=== PATIENT | male | born 1940 | race Caucasian/White ===

== ENCOUNTER 2025-05-21 14:46 | Outpatient (OUT) | payer MEDICARE, OTHER, SELFPAY ==
--- OUTSIDE RECORDS SUMMARY | 2024-11-19 07:00 | XMS_ITS ---
Author Organization [facility] Address [address] [place] [address] [place] [address] Care Team Providers Care Overlock Sleeve Setter Name Role Phone Robin Gross DO Primary Care Provider Marck Daniels [facility] [phone] Encounters Encounter Location Date Provider Diagnosis [address] [id number] 11/19/2024 Marck Chen Plan Of Treatment No Information Progress Notes * Alejo ARMANDODOB: [birth year] (84 yo M)Acc No.[id number]:11/19/2024 Patient: Phill TREVIÑOarlin Provider: Hector Chen DPM :1940 A ge:84 Y S ex:Male Date:11/19/2024 Address:[address] [place], [place] [id number] Pcp:Robin Gross DO Subjective: * Chief Complaints: * * Medical History: Objective: * Vitals: Assessment: Plan: * Treatment: * Images: * Electronic signature of [place] in YEISKA Chen on 05/21/2025 at 02:49 PM EDT Sign off status: Pending * Provider: Hector Chen DPM Date: 11/19/2024 Generated for Oneal spears/Salvador/Saravanan on: 05/21/2025 02:49 PM EDT
--- OUTSIDE RECORDS SUMMARY | 2025-02-18 06:15 | XMS_ITS ---
Author Organization [facility] Address [address] [place] [address] [place] [address] Care Team Providers Care Director Nursing Service Name Role Phone Robin Gross DO Primary Care Provider Marck Daniels [facility] [phone] Encounters Encounter Location Date Provider Diagnosis [address] [id number] 02/18/2025 Marck Chen Plan Of Treatment No Information Progress Notes * Alejo ARMANDODOB: [birth year] (84 yo M)Acc No.[id number]:02/18/2025 Patient: Phill TREVIÑOarlin Provider: Hector Chen DPM :1940 A ge:84 Y S ex:Male Date:02/18/2025 Address:[address] [place], [place] [id number] Pcp:Robin Gross DO Subjective: * Chief Complaints: * * Medical History: Objective: * Vitals: Assessment: Plan: * Treatment: * Images: * Electronic signature of [place] in YESIKA Chen on 05/21/2025 at 02:49 PM EDT Sign off status: Pending * Provider: Hector Chen DPM Date: 02/18/2025 Generated for Oneal spears/Salvador/Saravanan on: 05/21/2025 02:49 PM EDT
--- OUTSIDE RECORDS SUMMARY | 2025-05-15 20:43 | XMS_ITS | Continuity of Care Document ---
Author Organization [facility] Address [address] [place] [address] Phone Care Team Providers Care Electronic Musical Instrument Repairer Name Role Phone Alloy, Robin MOELLER Attending Provider (OV) Robin Gross DO Primary Care Provider (OV) Marialuisa Schwartz APRN Other Provider Sarah Parry MD Attending Provider Diego Neff DO Emergency Provider Care Teams Patient Care Team Team Status: Active Member Role Status Dates Robin Gross DO Primary Care Provider Active Visit Care Team Team Status: Inactive Member Role Status Dates Robin Gross DO Attending Provider Active Start: February 19, 2025 End: February 19, 2025 Visit Care Team Team Status: Active Member Role Status Dates Robin Gross DO Primary Care Provider Active Sta rt: March 09, 2025 Marialuisa Schwartz APRN Other Provider Active Start : March 09, 2025 Sarah Parry MD Attending Provider Active Start: March 09, 2025 Visit Care Team Team Status: Inactive Member Role Status Dates Robin Gross DO Attending Provider Active Start: March 11, 2025 End: March 11, 2025 Visit Care Team Team Status: Inactive Member Role Status Dates Robin Gross DO Primary Care Provider Active Sta rt: March 21, 2025 End: March 21, 2025 Diego Neff DO Emergency Provider Active St art: March 21, 2025 End: March 21, 2025 Visit Care Team Team Status: Inactive Member Role Status Dates Robin Gross DO Attending Provider Active Start: April 22, 2025 End: April 22, 2025 Patient Care Team Team Status: Inactive Member Role Status Dates Robin Gross DO Attending Provider Active Start: May 15, 2025 End: May 15, 2025 Chief Complaint and Reason for Visit Chief Complaint Admit Date E11 Z79.899 February 19, 2025 7:45a m r55 z95.0 March 09, 2025 10:0 7am R42 TOOTH PAIN,R35. M62.81 March 11 5:59am sob March 21, 2025 7:05a m z79.899 I10 e87.6 e11 April 22, 2025 7 :35am Pre-Surgical Testing May 15, 2025 9 :14am Allergies, Adverse Reactions, Alerts Allergen Type Severity Reaction Last Updated Verified Status venom-honey bee Allergy Unknown Anaphylaxis March 21, 2025 7:28a m Yes Active Social History Smoking Status Status Start Date End Date Date of Observa tion Never smoked tobacco (finding) March 21, 2025 7:23am Observation Status Observation Response Date of Response Legal Sex Male (finding) Sex Assigned At Male [id number] Family History Relationship Condition Age at Onset Recorded Date/T mary grandparent Diabetes mellitus Unknown mother Diabetes mellitus Unknown Problems Active Problems Medical Problem Onset Date Status BPH (benign prostatic hyperplasia) Unknown Active Acute encephalopathy Unknown Active Diabetes mellitus Unknown Active Sick sinus syndrome Unknown Active Depression Unknown Active Syncope Unknown Active Urinary retention Unknown Active Encounter for psychiatric assessment Unknown Active Altered mental state Unknown Active History of CVA (cerebrovascular accident) Unknow n Active Inactive/Resolved Problems Medical Problem Onset Date Status Ingrowing toenail Unknown Resolved Viral gastroenteritis Unknown Resolved Cough Unknown Resolved Viral illness Unknown Resolved Lumbar back pain Unknown Resolved Viral upper respiratory illness Unknown Resolved Acute urinary retention Unknown Resolved Bronchitis Unknown Resolved Chest pain Unknown Resolved Medications Medication Status Dose Units Route Directions Qty Days St art Date Stop Date End Date Instructions Adherence Celecoxib (Celebrex) 200 mg capsule Discont inued 200 MG PO 1 time daily 2021 12:00a m Sepua 2022 7:17p m Atorvastati n 20 mg tablet Active 20 MG PO Daily at bedtime 2021 12:00a m take 1 daily at night Unknown Trazodone 50 mg tablet Active 25 MG PO Bedtime 2021 12:00a m Unknown Cetirizine 10 mg tablet Discont inued 10 MG PO Q24H as needed for Allergy Symptoms 2021 12:00a m Janua ry 2024 11:53 am Docusate Sodium 100 mg capsule Discont inued 100 MG PO Bedtime 2021 12:00a m Janua ry 2022 7:14p m Multivitami n Tablet Active 1 TAB PO Daily 2021 12:00a m Unknown Potassium Chloride 10 mEq Capsule, Extended Release Discont inued 10 MEQ PO Daily 2021 12:00a m Janua ry 2022 7:17p m Tamsulosin (Flomax) 0.4 mg Capsule Discont inued 0.4 MG PO Daily 2021 12:00a m Janua ry 2022 7:17p m Meclizine 25 mg Tablet Discont inued 25 MG PO Twice daily as needed for Dizziness 2021 12:00a m Janua ry 2022 7:17p m Docusate Sodium (Colace) 100 mg Capsule Discont inued 100 MG PO Daily 2021 12:00a m Janua ry 2024 11:52 am Omeprazole 20 mg Capsule,Del ayed Release(Dr/ Ec) Active 20 MG PO Daily 2021 12:00a m Unknown Lisinopril 5 mg Tablet Active 7.5 MG PO Daily 2021 12:00a m Unknown Clindamycin Hcl 300 mg capsule Discont inued 600 MG PO Three times daily 12 2 2021 12:00a m Janua ry 2022 7:14p m Levetiracet am (Keppra) 500 mg Tablet Discont inued 500 MG PO Q12H 60 2021 12:00a m Janua ry 2024 11:52 am Doxycycline Hyclate 100 mg tablet Discont inued 100 MG PO Twice daily April 07, 2023 12:00a m Octob er 2022 6:25a m Aspirin 81 mg capsule Active 81 MG PO Daily 2024 1:00am Unknown cranberry extract Active 450 MG PO Daily 2024 1:00am Unknown Tramadol 50 mg tablet Discont inued 50 MG PO As Directed as needed for pain y 2024 1:00am Febru nima 2024 9:15a m Lisinopril 2.5 mg tablet Active 5 MG PO Daily December 20, 2024 12:00a m take with 5mg tablet to equal 7.5 daily Unknown Tamsulosin (Flomax) 0.4 mg capsule Discont inued 0.4 MG PO Daily December 20, 2024 12:00a m January 05, 2025 10:00 pm Ondansetron 4 mg tablet,disi ntegrating Active 4 MG PO Four times daily as needed for nausea and vomiting December 20, 2024 12:00a m Unknown Magnesium Oxide 400 mg (241.3 mg magnesium) tablet Discont inued 400 MG PO Daily 2022 1:00am Octob er 2022 6:25a m Celecoxib 200 mg Capsule Active 200 MG PO Daily Octobe r 2022 12:00a m Unknown Potassium Chloride 10 mEq Tablet Extended Release Active 10 MEQ PO Daily Octobe r 2022 12:00a m Unknown Sodium Chloride (Lu[place] Nasal) 0.65 % [place],Non-A erosol Discont inued 2 SPRAY INTRAN WANDA Three times daily Octobe r 2022 12:00a m Sepua ry 2024 11:52 am Acetaminoph en 650 mg Tablet Discont inued 650 MG PO Q4H as needed for Pain Octobe r 2022 12:00a m Sepua ry 2024 11:53 am Tamsulosin 0.4 mg Capsule Active 0.4 MG PO Daily Octobe r 2022 12:00a m Unknown Meclizine 25 mg Tablet Active 12.5 MG PO Q8H as needed for Dizziness Octobe r 2022 12:00a m Unknown Diclofenac Sodium 1 % Gel Discont inued 2 GM TOPICA L Daily at bedtime Octobe r 2022 12:00a m Janua ry 2024 11:52 am apply to BILAT KNEES Sodium Chloride (Deep Sea Nasal) 0.65 % aerosol,spr ay Active 2 SPRAY INTRAN WANDA Every 2 hours as needed for dry nasal passages Februa ry 2024 1:00am Unknown Carboxymeth ylcellulose Sodium (Refresh Tears) 0.5 % drops Active 1 DROPS EYE-AARTI TH Every 6 hours as needed for dry eye(s) 2024 1:00am Unknown Acetaminoph en 325 mg capsule Active 650 MG PO Every 4 hours as needed for pain 2024 1:00am Unknown Ondansetron Hcl 4 mg tablet Discont inued 4 MG PO Every 8 hours as needed for nausea and vomiting 15 5 2024 1:00am December 20, 2024 1:53p m Benzonatate 100 mg capsule Active 100 MG PO Twice daily as needed for cough 14 January 05, 2025 12:00a m Unknown Albuterol Sulfate 90 mcg/actuati on HFA aerosol inhaler Active 2 INH INHALA TION Q6H as needed for bronchospas m March 21, 2025 12:00a m administer with spacer Unknown Medical Equipment Device Date Implanted Device Details Endocardial pacing lead May 31, 2022 AIDE : [id number] Issuing Agency: [facility] Device Id: [id number] Expiration Date: 2024-05-17 Serial Number: [id number] Endocardial pacing lead May 31, 2022 AIDE : ()[id number] Issuing Agency: [facility] Device Id: [id number] Expiration Date: 2025-03-16 Serial Number: [id number] Dual-chamber implantable pacemaker, rate-responsive May 31, 2022 AIDE: ()[id number] Issuing Agency: [facility] Device Id: [id number] Expiration Date: 2023-11-15 Serial Number: [id number] Procedures Procedure Date Performed Status XR chest 2V* March 21, 2025 7:20am completed Relevant Diagnostic Tests and/or Laboratory Data Laboratory Results Test Collection Date/Time Result Date/Time Result Interpretation Reference Range Result Comment Performing Site Correcte d White Blood Count March 11, 2025 5:59am March 11, 2025 10:44am 7.3 10*3/uL 4.1-10.5 [facility] [id number] [address] [facility] [address] Correcte d White Blood Count March 21, 2025 7:49am March 21, 2025 8:00am 7.9 10*3/uL 4.1-10.5 [facility] [id number] [address] [facility] [address] Correcte d White Blood Count May 15, 2025 9:14am May 15, 2025 10:51am 7.0 10*3/uL 4.1-10.5 [facility] [id number] [address] [facility] [address] Uncorrec mela WBC Count March 11, 2025 5:59am March 11, 2025 10:44am 7.3 10*3/uL 4.1-10.5 [facility] [id number] [address] [facility] [address] Uncorrec mela WBC Count March 21, 2025 7:49am March 21, 2025 8:00am 7.9 10*3/uL 4.1-10.5 [facility] [id number] [address] [facility] [address] Uncorrec mela WBC Count May 15, 2025 9:14am May 15, 2025 10:51am 7.0 10*3/uL 4.1-10.5 [facility] [id number] [address] [place] [address] Red Blood Count March 11, 2025 5:59am March 11, 2025 10:44am 4.71 10*6/uL 3.90-5.60 [facility] [id number] [address] [facility] [address] Red Blood Count March 21, 2025 7:49am March 21, 2025 8:00am 4.63 10*6/uL 3.90-5.60 [facility] [id number] [address] [place] [address] Red Blood Count May 15, 2025 9:14am May 15, 2025 10:51am 4.72 10*6/uL 3.90-5.60 [facility] [id number] [address] [facility] [address] Hemoglob in March 11, 2025 5:59am March 11, 2025 10:44am 14.9 g/dL 13.0-17.0 [facility] [id number] [address] [facility] [address] Hemoglob in March 21, 2025 7:49am March 21, 2025 8:00am 14.7 g/dL 13.0-17.0 [facility] [id number] [address] [facility] [address] Hemoglob in May 15, 2025 9:14am May 15, 2025 10:51am 15.0 g/dL 13.0-17.0 [facility] [id number] [address] [facility] [address] Hematocr it March 11, 2025 5:59am March 11, 2025 10:44am 44.1 % 38.8-50.0 [facility] [id number] [address] [facility] [place] [address] Hematocr it March 21, 2025 7:49am March 21, 2025 8:00am 43.2 % 38.8-50.0 [facility] [id number] [address] [facility] [address] Hematocr it May 15, 2025 9:14am May 15, 2025 10:51am 44.3 % 38.8-50.0 [facility] [id number] [address] [facility] [address] Mean Corpuscu lar Volume March 11, 2025 5:59am March 11, 2025 10:44am 93.6 fL 83.5-101 [facility] [id number] [address] [facility] [place] [address] Mean Corpuscu lar Volume March 21, 2025 7:49am March 21, 2025 8:00am 93.3 fL 83.5-101 [facility] [id number] [address] [facility] [place] [address] Mean Corpuscu lar Volume May 15, 2025 9:14am May 15, 2025 10:51am 93.8 fL 83.5-101 [facility] [id number] [address] [facility] [address] Mean Corpuscu lar Hemoglob in March 11, 2025 5:59am March 11, 2025 10:44am 31.5 pg 27.5-35.2 [facility] [id number] [address] [facility] [address] Mean Corpuscu lar Hemoglob in March 21, 2025 7:49am March 21, 2025 8:00am 31.7 pg 27.5-35.2 [facility] [id number] [address] [facility] [address] Mean Corpuscu lar Hemoglob in May 15, 2025 9:14am May 15, 2025 10:51am 31.8 pg 27.5-35.2 [facility] [id number] [address] [facility] [address] Mean Corpuscu lar Hemoglob in [facility] March 11, 2025 5:59am March 11, 2025 10:44am 33.7 g/dL 32.5-35.6 [facility] [id number] [address] [facility] [address] Mean Corpuscu lar Hemoglob in [facility] March 21, 2025 7:49am March 21, 2025 8:00am 34.0 g/dL 32.5-35.6 [facility] [id number] [address] [facility] [address] Mean Corpuscu lar Hemoglob in [facility] May 15, 2025 9:14am May 15, 2025 10:51am 33.9 g/dL 32.5-35.6 [facility] [id number] [address] [facility] [address] Red Cell Distribu tion Width March 11, 2025 5:59am March 11, 2025 10:44am 12.8 % 12.0-14.8 [facility] [id number] [address] [facility] [address] Red Cell Distribu tion Width March 21, 2025 7:49am March 21, 2025 8:00am 12.6 % 12.0-14.8 [facility] [id number] [address] [place] [address] Red Cell Distribu tion Width May 15, 2025 9:14am May 15, 2025 10:51am 12.6 % 12.0-14.8 [facility] [id number] [address] [facility] [address] Platelet Count March 11, 2025 5:59am March 11, 2025 10:44am 193 10*3/uL 150-450 [facility] [id number] [address] [facility] [address] Platelet Count March 21, 2025 7:49am March 21, 2025 8:00am 178 10*3/uL 150-450 [facility] [id number] [address] [facility] [address] Platelet Count May 15, 2025 9:14am May 15, 2025 10:51am 206 10*3/uL 150-450 [facility] [id number] [address] [facility] [address] Mean Platelet Volume March 11, 2025 5:59am March 11, 2025 10:44am 9.2 fL 6.6-10.1 [facility] [id number] [address] [facility] [address] Mean Platelet Volume March 21, 2025 7:49am March 21, 2025 8:00am 8.7 fL 6.6-10.1 [facility] [id number] [address] [facility] [address] Mean Platelet Volume May 15, 2025 9:14am May 15, 2025 10:51am 8.6 fL 6.6-10.1 [facility] [id number] [address] [facility] [address] Monocyte Distribu tion Width March 21, 2025 7:49am March 21, 2025 8:00am 17.45 % 0.00-20.00 [facility] [id number] [address] [facility] [address] Neutroph ils (%) (Auto) March 11, 2025 5:59am March 11, 2025 10:44am 57.5 % . [facility] [id number] [address] [facility] [address] Neutroph ils (%) (Auto) March 21, 2025 7:49am March 21, 2025 8:00am 51.2 % . [facility] [id number] [address] [facility] [address] Neutroph ils (%) (Auto) May 15, 2025 9:14am May 15, 2025 10:51am 59.6 % . [facility] [id number] [address] [facility] [address] Lymphocy alex (%) (Auto) March 11, 2025 5:59am March 11, 2025 10:44am 27.6 % . [facility] [id number] [address] [facility] [place] [address] Lymphocy alex (%) (Auto) March 21, 2025 7:49am March 21, 2025 8:00am 32.3 % . [facility] [id number] [address] [facility] [address] Lymphocy alex (%) (Auto) May 15, 2025 9:14am May 15, 2025 10:51am 26.6 % . [facility] [id number] [address] [facility] [address] Monocyte s (%) (Auto) March 11, 2025 5:59am March 11, 2025 10:44am 10.6 % . [facility] [id number] [address] [facility] [address] Monocyte s (%) (Auto) March 21, 2025 7:49am March 21, 2025 8:00am 11.3 % . [facility] [id number] [address] [facility] [address] Monocyte s (%) (Auto) May 15, 2025 9:14am May 15, 2025 10:51am 9.2 % . [facility] [id number] [address] [facility] [address] Eosinoph ils (%) (Auto) March 11, 2025 5:59am March 11, 2025 10:44am 3.9 % . [facility] [id number] [address] [facility] [address] Eosinoph ils (%) (Auto) March 21, 2025 7:49am March 21, 2025 8:00am 4.4 % . [facility] [id number] [address] [facility] [address] Eosinoph ils (%) (Auto) May 15, 2025 9:14am May 15, 2025 10:51am 4.2 % . [facility] [id number] [address] [facility] [address] Basophil s (%) (Auto) March 11, 2025 5:59am March 11, 2025 10:44am 0.4 % . [facility] [id number] [address] [facility] [address] Basophil s (%) (Auto) March 21, 2025 7:49am March 21, 2025 8:00am 0.8 % . [facility] [id number] [address] [facility] [address] Basophil s (%) (Auto) May 15, 2025 9:14am May 15, 2025 10:51am 0.4 % . [facility] [id number] [address] [facility] [address] Nucleate d RBC Relative Count (auto) March 11, 2025 5:59am March 11, 2025 10:44am 0.1 /100{WBC} 0-0.5 [facility] [id number] [address] [facility] [address] Nucleate d RBC Relative Count (auto) March 21, 2025 7:49am March 21, 2025 8:00am 0.1 /100{WBC} 0-0.5 [facility] [id number] [address] [facility] [address] Nucleate d RBC Relative Count (auto) May 15, 2025 9:14am May 15, 2025 10:51am 0.1 /100{WBC} 0-0.5 [facility] [id number] [address] [place] [id number] Neutroph ils # (Auto) March 11, 2025 5:59am March 11, 2025 10:44am 4.2 10*3/uL 1.8-7.7 [facility] [id number] [address] [facility] [address] Neutroph ils # (Auto) March 21, 2025 7:49am March 21, 2025 8:00am 4.0 10*3/uL 1.8-7.7 [facility] [id number] [address] [place] [id number] Neutroph ils # (Auto) May 15, 2025 9:14am May 15, 2025 10:51am 4.2 10*3/uL 1.8-7.7 [facility] [id number] [address] [place] [id number] Lymphocy alex # (Auto) March 11, 2025 5:59am March 11, 2025 10:44am 2.0 10*3/uL 1.00-4.8 [facility] [id number] [address] [place] [address] Lymphocy alex # (Auto) March 21, 2025 7:49am March 21, 2025 8:00am 2.5 10*3/uL 1.00-4.8 [facility] [id number] [address] [place], [place] [address] Lymphocy alex # (Auto) May 15, 2025 9:14am May 15, 2025 10:51am 1.9 10*3/uL 1.00-4.8 [facility] [id number] [address] [place], [place] [address] Monocyte s # (Auto) March 11, 2025 5:59am March 11, 2025 10:44am 0.8 10*3/uL 0.0-0.8 [facility] [id number] [address] [place], [place] [address] Monocyte s # (Auto) March 21, 2025 7:49am March 21, 2025 8:00am 0.9 10*3/uL Above high normal 0.0-0.8 [facility] [id number] [address] [place], [place] [address] Monocyte s # (Auto) May 15, 2025 9:14am May 15, 2025 10:51am 0.6 10*3/uL 0.0-0.8 [facility] [id number] [address] [place] [address] Eosinoph ils # (Auto) March 11, 2025 5:59am March 11, 2025 10:44am 0.3 10*3/uL 0.0-0.45 [facility] [id number] [address] [place], [place] [address] Eosinoph ils # (Auto) March 21, 2025 7:49am March 21, 2025 8:00am 0.3 10*3/uL 0.0-0.45 [facility] [id number] [address] [place] [address] Eosinoph ils # (Auto) May 15, 2025 9:14am May 15, 2025 10:51am 0.3 10*3/uL 0.0-0.45 [facility] [id number] [address] [facility] [address] Basophil s # (Auto) March 11, 2025 5:59am March 11, 2025 10:44am 0.0 10*3/uL 0.0-0.2 [facility] [id number] [address] [facility] [address] Basophil s # (Auto) March 21, 2025 7:49am March 21, 2025 8:00am 0.1 10*3/uL 0.0-0.2 [facility] [id number] [address] [facility] [address] Basophil s # (Auto) May 15, 2025 9:14am May 15, 2025 10:51am 0.0 10*3/uL 0.0-0.2 [facility] [id number] [address] [facility] [address] Prothrom bin Time March 21, 2025 7:49am March 21, 2025 8:24am 12.0 s 9.0-12.9 A hematocrit value greater than 55% may lead to inaccurate results in coagulation testing. Patients having hematocrit values >55% require a special collection tube for coagulation studies. Please contact the laboratory at [phone] for redraw instruction s. [facility] [id number] [address] [facility] [address] Prothrom bin Time May 15, 2025 9:14am May 15, 2025 11:19am 11.1 s 9.0-12.9 A hematocrit value greater than 55% may lead to inaccurate results in coagulation testing. Patients having hematocrit values >55% require a special collection tube for coagulation studies. Please contact the laboratory at [phone] for redraw instruction s. [facility] [id number] [address] [place], [place] [address] Prothrom b Time Internat ional Ratio March 21, 2025 7:49am March 21, 2025 8:24am 1.1 INR Therapeutic Range A) Pre- and Peroperativ e OAT started two weeks before surgery. NOT HIP SURGERY: 1.5 - 2.5 HIP SURGERY: 2 - 3B) Primary and secondary prevention of venous THROMBOSIS: 2 - 3C) Active venous thrombosis, pulmonary embolismand prevention of recurrent venous thrombosis: 2 - 3D) Prevention of arterial thromboembo lismincludi ng patients with mechanical heart valves: 3 - 4.5 [facility] [id number] [address] [place] [address] Prothrom b Time Internat ional Ratio May 15, 2025 9:14am May 15, 2025 11:19am 1.0 INR Therapeutic Range A) Pre- and Peroperativ e OAT started two weeks before surgery. NOT HIP SURGERY: 1.5 - 2.5 HIP SURGERY: 2 - 3B) Primary and secondary prevention of venous THROMBOSIS: 2 - 3C) Active venous thrombosis, pulmonary embolismand prevention of recurrent venous thrombosis: 2 - 3D) Prevention of arterial thromboembo lismincludi ng patients with mechanical heart valves: 3 - 4.5 [facility] [id number] [address] [place] [address] Activate d Partial Thrombop last Time May 15, 2025 9:14am May 15, 2025 11:19am 25.3 s 25.1-36.5 A hematocrit value greater than 55% may lead to inaccurate results in coagulation testing. Patients having hematocrit values >55% require a special collection tube for coagulation studies. Please contact the laboratory at for redraw instruction s. [facility] [id number] [address] [facility] [address] Urine Color March 21, 2025 7:49am March 21, 2025 8:02am Light-yel low Yellow [facility] [id number] [address] [place] [address] Urine Appearan ce March 21, 2025 7:49am March 21, 2025 8:02am Clear Clear [facility] [id number] [address] [facility] [address] Urine Specific Cashion March 21, 2025 7:49am March 21, 2025 8:02am 1.020 1.001-1.03 0 [facility] [id number] [address] [place] [address] Urine pH March 21, 2025 7:49am March 21, 2025 8:02am 6.5 5.0-9.0 [facility] [id number] [address] [facility] [address] Urine Leukocyt e Esterase March 21, 2025 7:49am March 21, 2025 8:02am Negative Negative [facility] [id number] [address] [facility] [address] Urine Nitrite March 21, 2025 7:49am March 21, 2025 8:02am Negative Negative [facility] [id number] [address] [facility] [address] Urine Protein March 21, 2025 7:49am March 21, 2025 8:02am Negative mg/dL Negative [facility] [id number] [address] [facility] [address] Urine Glucose (UA) March 21, 2025 7:49am March 21, 2025 8:02am Normal mg/dL Normal [facility] [id number] [address] [facility] [address] Urine Ketones March 21, 2025 7:49am March 21, 2025 8:02am Negative Negative [facility] [id number] [address] [facility] [address] Urine Urobilin ogen March 21, 2025 7:49am March 21, 2025 8:02am Normal mg/dL Normal [facility] [id number] [address] [facility] [address] Urine Bilirubi n March 21, 2025 7:49am March 21, 2025 8:02am Negative Negative [facility] [id number] [address] [facility] [address] Urine Occult Blood March 21, 2025 7:49am March 21, 2025 8:02am Negative Negative [facility] [id number] [address] [facility] [address] Glucose Level March 11, 2025 5:59am March 11, 2025 11:23am 113 mg/dL Above high normal 70-100 ADA recommended reference rangeRandom Glucose Reference Range is dependent on time and content of last meal. Glucose of more than 200 mg/dL in a nonstressed , ambulatory subject supports the diagnosis of Diabetes Mellitus. [facility] [id number] [address] [facility] [address] Glucose Level March 21, 2025 7:49am March 21, 2025 8:18am 140 mg/dL Above high normal 70-100 ADA recommended reference rangeRandom Glucose Reference Range is dependent on time and content of last meal. Glucose of more than 200 mg/dL in a nonstressed , ambulatory subject supports the diagnosis of Diabetes Mellitus. [facility] [id number] [address] [facility] [address] Glucose Level April 22, 2025 7:35am April 22, 2025 9:42am 128 mg/dL Above high normal 70-100 ADA recommended reference rangeRandom Glucose Reference Range is dependent on time and content of last meal. Glucose of more than 200 mg/dL in a nonstressed , ambulatory subject supports the diagnosis of Diabetes Mellitus. [facility] [id number] [address] [facility] [address] Glucose Level May 15, 2025 9:14am May 15, 2025 10:56am 139 mg/dL Above high normal 70-100 ADA recommended reference rangeRandom Glucose Reference Range is dependent on time and content of last meal. Glucose of more than 200 mg/dL in a nonstressed , ambulatory subject supports the diagnosis of Diabetes Mellitus. [facility] [id number] [address] [facility] [address] Blood Urea Nitrogen March 11, 2025 5:59am March 11, 2025 11:23am 29 mg/dL Above high normal 7-25 [facility] [id number] [address] [facility] [address] Blood Urea Nitrogen March 21, 2025 7:49am March 21, 2025 8:18am 31 mg/dL Above high normal 7-25 [facility] [id number] [address] [facility] [address] Blood Urea Nitrogen April 22, 2025 7:35am April 22, 2025 9:42am 27 mg/dL Above high normal 7-25 [facility] [id number] [address] [facility] [address] Blood Urea Nitrogen May 15, 2025 9:14am May 15, 2025 10:56am 24 mg/dL 7-25 [facility] [id number] [address] [facility] [address] Creatini ne March 11, 2025 5:59am March 11, 2025 11:23am 1.06 mg/dL 0.70-1.30 [facility] [id number] [address] [facility] [address] Creatini ne March 21, 2025 7:49am March 21, 2025 8:18am 1.15 mg/dL 0.70-1.30 [facility] [id number] [address] [facility] [address] Creatini ne April 22, 2025 7:35am April 22, 2025 9:42am 1.21 mg/dL 0.70-1.30 [facility] [id number] [address] [facility] [address] Creatini ne May 15, 2025 9:14am May 15, 2025 10:56am 1.12 mg/dL 0.70-1.30 [facility] [id number] [address] [facility] [address] Estimate d GFR (CKD-EPI ) March 11, 2025 5:59am March 11, 2025 11:23am > 60.0 mL/Min [facility] [id number] [address] [facility] [address] Estimate d GFR (CKD-EPI ) March 21, 2025 7:49am March 21, 2025 8:18am > 60.0 mL/Min [facility] [id number] [address] [facility] [address] Estimate d GFR (CKD-EPI ) April 22, 2025 7:35am April 22, 2025 9:42am 59.409 mL/Min [facility] [id number] [address] [facility] [address] Estimate d GFR (CKD-EPI ) May 15, 2025 9:14am May 15, 2025 10:56am > 60.0 mL/Min [facility] [id number] [address] [facility] [address] Sodium Level March 11, 2025 5:59am March 11, 2025 11:23am 140 mmol/L 136-145 [facility] [id number] [address] [facility] [address] Sodium Level March 21, 2025 7:49am March 21, 2025 8:18am 139 mmol/L 136-145 [facility] [id number] [address] [facility] [address] Sodium Level April 22, 2025 7:35am April 22, 2025 9:42am 139 mmol/L 136-145 [facility] [id number] [address] [facility] [address] Sodium Level May 15, 2025 9:14am May 15, 2025 10:56am 139 mmol/L 136-145 [facility] [id number] [address] [facility] [address] Potassiu m Level March 11, 2025 5:59am March 11, 2025 11:23am 4.4 mmol/L 3.5-5.1 [facility] [id number] [address] [facility] [address] Potassiu m Level March 21, 2025 7:49am March 21, 2025 8:18am 4.5 mmol/L 3.5-5.1 [facility] [id number] [address] [place] [address] Potassiu m Level April 22, 2025 7:35am April 22, 2025 9:42am 4.7 mmol/L 3.5-5.1 [facility] [id number] [address] [place] [address] Potassiu m Level May 15, 2025 9:14am May 15, 2025 10:56am 4.7 mmol/L 3.5-5.1 [facility] [id number] [address] [facility] [address] Chloride Level March 11, 2025 5:59am March 11, 2025 11:23am 105 mmol/L 98-107 [facility] [id number] [address] [facility] [address] Chloride Level March 21, 2025 7:49am March 21, 2025 8:18am 107 mmol/L 98-107 [facility] [id number] [address] [facility] [address] Chloride Level April 22, 2025 7:35am April 22, 2025 9:42am 103 mmol/L 98-107 [facility] [id number] [address] [place], [place] [address] Chloride Level May 15, 2025 9:14am May 15, 2025 10:56am 103 mmol/L 98-107 [facility] [id number] [address] [place] [address] Carbon Dioxide Level March 11, 2025 5:59am March 11, 2025 11:23am 30.2 mmol/L 21.0-31.0 [facility] [id number] [address] [facility] [address] Carbon Dioxide Level March 21, 2025 7:49am March 21, 2025 8:18am 27.9 mmol/L 21.0-31.0 [facility] [id number] [address] [facility] [address] Carbon Dioxide Level April 22, 2025 7:35am April 22, 2025 9:42am 33.6 mmol/L Above high normal 21.0-31.0 [facility] [id number] [address] [facility] [address] Carbon Dioxide Level May 15, 2025 9:14am May 15, 2025 10:56am 31.0 mmol/L 21.0-31.0 [facility] [id number] [address] [facility] [address] Anion Gap March 11, 2025 5:59am March 11, 2025 11:23am 9.2 mEq/L 6.0-15.0 [facility] [id number] [address] [facility] [place] [address] Anion Gap March 21, 2025 7:49am March 21, 2025 8:18am 8.6 mEq/L 6.0-15.0 [facility] [id number] [address] [facility] [place] [address] Anion Gap April 22, 2025 7:35am April 22, 2025 9:42am 7.1 mEq/L 6.0-15.0 [facility] [id number] [address] [facility] [place] [address] Anion Gap May 15, 2025 9:14am May 15, 2025 10:56am 9.7 mEq/L 6.0-15.0 [facility] [id number] [address] [facility] [place] [address] Calcium Level March 11, 2025 5:59am March 11, 2025 11:23am 9.4 mg/dL 8.6-10.3 [facility] [id number] [address] [facility] [address] Calcium Level March 21, 2025 7:49am March 21, 2025 8:18am 8.8 mg/dL 8.6-10.3 [facility] [id number] [address] [facility] [address] Calcium Level April 22, 2025 7:35am April 22, 2025 9:42am 9.5 mg/dL 8.6-10.3 [facility] [id number] [address] [place], [place] [address] Calcium Level May 15, 2025 9:14am May 15, 2025 10:56am 9.4 mg/dL 8.6-10.3 [facility] [id number] [address] [facility] [address] Total Protein March 11, 2025 5:59am March 11, 2025 11:23am 6.3 g/dL Below low normal 6.4-8.9 [facility] [id number] [address] [facility] [address] Albumin March 11, 2025 5:59am March 11, 2025 11:23am 4.2 g/dL 3.5-5.7 [facility] [id number] [address] [facility] [address] Globulin March 11, 2025 5:59am March 11, 2025 11:23am 2.1 g/dL [facility] [id number] [address] [place], [place] [address] Albumin/ Globulin Ratio March 11, 2025 5:59am March 11, 2025 11:23am 2.0 [facility] [id number] [address] [place] [address] Total Bilirubi n March 11, 2025 5:59am March 11, 2025 11:23am 1.1 mg/dL Above high normal 0.3-1.0 [facility] [id number] [address] [facility] [address] Aspartat e Amino Transf (AST/SGO T) March 11, 2025 5:59am March 11, 2025 11:23am 15 U/L 13-39 [facility] [id number] [address] [facility] [address] Alanine Aminotra nsferase (ALT/SGP T) March 11, 2025 5:59am March 11, 2025 11:23am 12 U/L 7-52 [facility] [id number] [address] [place], [place] [address] Alkaline Phosphat ase March 11, 2025 5:59am March 11, 2025 11:23am 54 U/L 34-104 [facility] [id number] [address] [place], [place] [address] Total Creatine Kinase March 21, 2025 7:49am March 21, 2025 8:19am 39 U/L 30-223 [facility] [id number] [address] [place], [place] [address] Troponin I High Sensitiv ity March 21, 2025 7:49am March 21, 2025 8:26am 6 ng/L 0-20 The Troponin units of report have been changed to meet the Chest Pain Accreditati on requirement , element EC5.M1l2. Troponin units are changed from pg/ml to ng/L. Also, the decimal is removed and results are in whole numbers. [facility] [id number] [address] [place], [place] [address] B-Type Natriure tic Peptide March 21, 2025 7:49am March 21, 2025 8:24am 46.0 pg/mL 5-100 [facility] [id number] [address] [place], [place] [address] Pharmacy Creatini ne Clearanc e (Chem March 11, 2025 5:59am March 11, 2025 11:23am N/A [facility] [id number] [address] [place], [place] [address] Pharmacy Creatini ne Clearanc e (Chem March 21, 2025 7:49am March 21, 2025 8:18am 50.25 [facility] [id number] [address] [place], [place] [address] Pharmacy Creatini ne Clearanc e (Chem April 22, 2025 7:35am April 22, 2025 9:42am N/A [facility] [id number] [address] [place], [place] [address] Pharmacy Creatini ne Clearanc e (Chem May 15, 2025 9:14am May 15, 2025 10:56am N/A [facility] [id number] [address] [place], [place] [address] Hemoglob in A1c February 19, 2025 7:45am February 19, 2025 11:38am 6.6 % Above high normal 4.3-5.6 Increased risk for diabetes: 5.7 - 6.4diabetes : >6.4glycemi c control for adults with diabetes: <7.0 [facility] [id number] [address] [place] [address] Hemoglob in A1c April 22, 2025 7:35am April 23, 2025 9:58am 6.7 % Above high normal 4.3-5.6 Increased risk for diabetes: 5.7 - 6.4diabetes : >6.4glycemi c control for adults with diabetes: <7.0 [facility] [id number] [address] [place], [place] [address] Estimate d Average Glucose February 19, 2025 7:45am February 19, 2025 11:38am 143 mg/dL [facility] [id number] [address] [place], [place] [address] Estimate d Average Glucose April 22, 2025 7:35am April 23, 2025 9:58am 146 mg/dL [facility] [id number] [address] [place], [place] [address] Diagnostic Imaging Reports Author Alejandro Whittaker [facility] Authored March 21, 2025 8:36a m Report Dictated Date/Time Dictated By Status Radiology Report March 21, 2025 8:36am Alejandro Whittaker DO completed [facility]TER [facility] Main [place] [address] [place], [place] [address] XRay Report Signed Patient: Alejo Armando Jr MR#: [id number] : 1940 Acct:[id number] Age/Sex: 84 / M ADM Date: 5 Loc: ER Room: Type: [facility] ER Attending Dr: Copies to: Diego Neff DO~ Ordering Provider: Diego Neff DO Date of Service: 03/21/25 XR/XR chest 2V*: Chest Pain Plain film chest 2 view HISTORY: Shortness of breath. Weakness. COMPARISON: 01/05/2025 FINDINGS: SUPPORT DEVICES: None POSTSURGICAL CHANGES: Cardiac device remains intact HEART: Within normal limits PULMONARY FADUMO: Within normal limits MEDIASTINUM: Unremarkable LUNGS AND PLEURA: No acute lung process, pleural effusion or pneumothorax identified. BONY STRUCTURES: Intact ADDITIONAL FINDINGS None XR/XR chest 2V* IMPRESSION: No acute process. Impression dictated by: Alejandro Whittaker M.D. 03/21/2025 8:40 AM Dictation Location: RADIO-PC-20 Transcribed By: [facility] 03/21/2540 Dictated By: Alejandro Whittaker DO 03/21/25 0836 Signed By: <Electronically signed by Alejandro Whittaker DO in OV> 03/21/25 0840 Vital Signs Vital Reading Result Reference Range Collection Date/Time Height 70 [in_i] March 21, 2025 7:14am Weight 80.60 kg March 21, 2025 7:14am Body Temperature 97.5 [degF] 97.6-99.0 March 21, 2 025 7:14am Heart Rate 73 /min 60-100 March 21, 2025 9:36am Respiratory rate 14 /min 12-24 March 21, 2 025 9:30am Oxygen saturation by Pulse oximetry 96 % 95-10 0 March 21, 2025 9:30am BP Systolic 164 mm[Hg] 100-140 March 21, 2025 9:30am BP Diastolic 77 mm[Hg] 60-100 March 21, 2025 9:30am Advance Directives Advance Directive Response Recorded Date/ Time Advance Directives No May 15, 2025 5:36pm Insurance Providers Guarantor Simona Cano Address [address] [place] [id number] Contact Info. Home Phone: Payer Policy Id Subscriber's Name Subscriber Id Gumaro ctive Date Expiration Date Medicare [id number] Alejo Armando Jr [id number] [employer] [facility] [id number] Alejo Armando Jr [id number] for Life [id number] Alejo Armando Jr [id number] Encounters Encounter Location(s) Arrival/Admit Date Discharge/Depart Date Provider(s) Departed Clinical -Lab [facility] February 19, 2025 7:45am February 19, 2025 7:46am Robin Gross DO ([facility]) Non-patient / Non-visit -[facility] March 09, 2025 10:07am Josie Parry Departed Clinical -Lab [facility] March 11, 2025 5:59am March 11, 2025 6:00am Robin Gross DO ([facility]) Departed Emergency -Emergency Room March 21, 2025 7:05am March 21, 2025 10:26am Departed Clinical -Lab [facility] April 22, 2025 7:35am April 22, 2025 7:36am Robin Gross DO ([facility]) Departed Clinical -Lab [facility] May 15, 2025 9:14am May 15, 2025 9:15am Robin Gross DO ([facility]) Plan of Treatment Future Tests Future scheduled test information is unavailable Pending Tests Pending diagnostic test information is unavailable Future Visits Future appointment information is unavailable Referrals to Other Providers Reason for Referral Referral Start Date Provider Provider Contact Information Provider Address Robin Gross DO ([facility]) Email: [facility]) [address] [place] [address] Jerri Gamino MD Email: [email or web address] Phone: [phone] [facility] [address] Future Procedures Future procedure information is unavailable Future Medications Future medication information is unavailable Patient Instructions Instruction Admit Date Bronchitis in adults - ED discharge inst ructions March 21, 2025 7:05am
--- OUTSIDE RECORDS SUMMARY | 2025-05-20 07:00 | XMS_ITS ---
Author Organization [facility] Address [address] [place] [address] [place] [address] Care Team Providers Care Work Checker Name Role Phone Robin Gross DO Primary Care Provider Marck [facility] [phone] Encounters Encounter Location Date Provider Diagnosis [address] [id number] 05/20/2025 Marck Chen Plan Of Treatment No Information Progress Notes * Alejo ARMANDODOB: [birth year] (84 yo M)Acc No.[id number]:05/20/2025 Patient: Phill TREVIÑOarlin Provider: Hector Chen DPM :1940 A ge:84 Y S ex:Male Date:05/20/2025 Address:[address] [place], [place] [id number] Pcp:Robin Gross DO Subjective: * Chief Complaints: * * Medical History: Objective: * Vitals: Assessment: Plan: * Treatment: * Images: * Electronic signature of Burke in YESIKA Chen on 05/21/2025 at 02:49 PM EDT Sign off status: Pending * Provider: Hector Chen DPM Date: 05/20/2025 Generated for Oneal spears/Salvador/Saravanan on: 05/21/2025 02:49 PM EDT
--- OUTSIDE RECORDS SUMMARY | 2025-05-21 14:50 | XMS_ITS | Clinical Summary ---
Author Organization [facility] Address [address] [place] [address] Care Team Providers Care Multi Operation Forming Machine Setter Name Role Phone Arnold Wells DO Primary Care Provider [phone] Allergies No known active allergies Medications celecoxib (CeleBREX) 200 MG capsule Take 200 mg by mouth in the morning. 11/01/2022 Active docusate sodium (Colace) 100 MG capsule Take 100 mg by mouth in the morning. 10/30/2022 Active levETIRAcetam (Keppra) 500 MG tablet Take 1 tablet by mouth every 12 (twelve) hours. 12/10/2022 Active lisinopril 5 MG tablet 09/29/2022 Active magnesium oxide (Mag-Ox) 400 (240 Mg) MG tablet Take 400 mg by mouth in the morning. 10/18/2022 Active traZODone (Desyrel) 50 MG tablet TAKE 1 1/2 TABLET BY MOUTH AT BEDTIME NEEDED DIRECTED 10/23/2022 Active omeprazole (PriLOSEC) [address] capsule 07/19/2022 Activ e atorvastatin (Lipitor) 20 MG tablet Take 20 mg by mouth in the morning. Active cetirizine (ZyrTEC) 10 MG chewable tablet Chew Daily. Ac tive diclofenac (Voltaren) 25 MG EC tablet Take 25 mg by mouth in the morning and 25 mg before bedtime. Do not crush, chew, or split. . Active meclizine (Antivert) 25 MG tablet Take 25 mg by mouth 3 (three) times a day as needed for dizziness. Active potassium chloride CR (Klor-Con M10) 10 MEQ ER tablet Take 10 mEq by mouth in the morning. Do not crush or chew. . Active tamsulosin (Flomax) 0.4 MG 24 hr capsule Take 0.4 mg by mouth in the morning. Active Active Problems No known active problems Social History Tobacco Use Types Packs/Day Years Used Date Smoking Tobacco: Never Smokeless Tobacco: Never Tobacco Cessation:Counseling Given: Yes Alcohol Use Standard Drinks/Week Comments Defer 0 (1 standard drink = 0.6 oz pur e alcohol) Sex and Gender Information Value Date Recorded Sex Assigned at Not on file Legal Sex Male 6:46 PM EDT Gender Identity Not on file Sexual Orientation Not on file Last Filed Vital Signs Vital Sign Reading Time Taken Comments Blood Pressure - - Pulse - - Temperature - - Respiratory Rate - - Oxygen Saturation - - Inhaled Oxygen Concentration - - Weight 72.6 kg (160 lb) 01/14/2024 1:17 PM EDT Height 175.3 cm (5' 9 ) 01/14/2024 1:17 PM EDT Body Mass Index 23.63 01/14/2024 1:17 PM EDT Plan of Treatment Not on file Insurance MEDICARE [facility] Care Teams Multi Operation Forming Machine Setter Relationship Specialty Start Date End Date Arnold Wells DO PCP - General Family Medicine 01/14/24
--- OUTSIDE RECORDS SUMMARY | 2025-05-21 14:50 | XMS_ITS | Encounter Summary ---
Author Organization [facility] Address [address] [facility] [place] [address] Care Team Providers Care Lacing String Cutter Name Role Phone Russell Arnold MOELLER Primary Care Provider [phone] Encounter Details Date Type Department Care Team (Late st Contact Info) Description 01/14/2024 Abstract [facility] [address] [place] [address] Donovan Trujillo, DPM FACFAS [address] [place] [address] Social History Tobacco Use Types Packs/Day Years Used Date Smoking Tobacco: Never Smokeless Tobacco: Never Alcohol Use Standard Drinks/Week Comments Defer 0 (1 standard drink = 0.6 oz pur e alcohol) Sex and Gender Information Value Date Recorded Sex Assigned at Not on file Legal Sex Male 6:46 PM EDT Gender Identity Not on file Sexual Orientation Not on file documented as of this encounter Plan of Treatment Not on file documented as of this encounter Visit Diagnoses Not on filedocumented in this encounter Care Teams Lacing String Cutter Relationship Specialty Start Date End Date Arnold Wells DO PCP - General Family Medicine 01/14/24 documented as of this encounter
--- OUTSIDE RECORDS SUMMARY | 2025-05-21 14:50 | XMS_ITS | Encounter Summary ---
Author Organization [facility] Address [address] [place] [address] Care Team Providers Care Mosaic Worker Name Role Phone Unallocated, Nominder Provider Primary Care Provi juanjose Arnold Wells DO Primary Care Provider [phone] Encounter Details Date Type Department Care Team (Late st Contact Info) Description 06/27/2023 Abstract [facility] [address] [facility] [address] [place] [address] Robin Kemp DPM [address] [facility] [address] [place] [address] Social History Tobacco Use Types Packs/Day Years Used Date Smoking Tobacco: Never Smokeless Tobacco: Never Sex and Gender Information Value Date Recorded Sex Assigned at Not on file Legal Sex Male 6:46 PM EDT Gender Identity Not on file Sexual Orientation Not on file documented as of this encounter Plan of Treatment Not on file documented as of this encounter Visit Diagnoses Not on filedocumented in this encounter Care Teams Mosaic Worker Relationship Specialty Start Date End Date Unallocated, Noms Provider, [address] [place] [address] PCP - General 04/20/23 01/13/24 Arnold Wells DO [address] [place] [address] PCP - General Family Medicine 01/14/24 documented as of this encounter
--- OUTSIDE RECORDS SUMMARY | 2025-05-21 14:50 | XMS_ITS | Encounter Summary ---
Author Organization [facility] Address [address] [place] [address] Care Team Providers Care Secretary Receptionist Name Role Phone Unallocated, Nominder Provider Primary Care Provi juanjose Arnold Wells DO Primary Care Provider [phone] Encounter Details Date Type Department Care Team (Late st Contact Info) Description 04/25/2023 Abstract [facility] [address] [facility] [address] [place] [address] Robin Kemp DPM [address] [facility] [address] [place] [address] Social History Tobacco Use Types Packs/Day Years [...] on filedocumented in this encounter Care Teams Secretary Receptionist Relationship Specialty Start Date End Date Unallocated, [facility] Provider, [address] [place] [address] PCP - General 04/20/23 01/13/24 Arnold Wells DO [address] [place] [address] PCP - General Family Medicine 01/14/24 documented as of this encounter
--- OUTSIDE RECORDS SUMMARY | 2025-05-21 14:50 | XMS_ITS | Patient Health Record ---
Author Organization [facility] Address [address] [place] [address] Care Team Providers Care Production Truck Driver Name Role Phone Robin Gross Primary Care Provider Dr. Balbir Pepper Unavailable [phone] Allergies Allergen (clinical drug ingredient) Drug/Non Drug Allergy documented on EMR Reaction Allergy Type Onset Date Status Honey Bee Venom anaphylaxis Drug Allergy Active Reason For Referral No Information Medications Medication SIG (Take, Route, Frequency, Duration) Notes Start Date End Date Status Omeprazole 20 MG 1 capsule Orally Onc e a day; Duration: 90 Active Atorvastatin Calcium 20 MG TAKE 1 TABLET BY MOUTH EVERY DAY Oral once every night; Duration: 90 Active Cetirizine HCl 10 MG 1 tablet Orally Onc e a day; Duration: 90 Active traZODone HCl 50 MG 1 tablet at bedtime Orally once every night; Duration: 30 Active MAGnesium-Oxide 400 (240 Mg) MG TAKE 1 TABLET BY MOUTH EVERY DAY Orally Once a day; Duration: 30 Active Lisinopril 5 MG 1 tablet Orally Once a day; Duration: 90 Active Docusate Sodium 100 MG TAKE ONE CAPSULE BY MOUTH EVERY DAY Orally Once a day; Duration: 30 Active Multivitamin Active levETIRAcetam 500 MG TAKE 1 TABLET BY MO UT EVERY 12 HOURS Orally every 12 hrs; Duration: 30 Active Social History Tobacco Use: Social History Observation Description Date Details (start date - stop date) Never Smoker NA - NA Tobacco Screen: Question Answer Notes Are you a: never smoker Alcohol Screening: Question Answer Notes Did you have a drink containing alcohol in the p ast year? No Points 0 Interpretation Negative Depression Screening (PHQ-9): Question Answer Notes Little interest or pleasure in doing things Not at all Feeling down, depressed, or hopeless Several day s Trouble falling or staying asleep, or sleeping t oo much Not at all Feeling tired or having little energy Several da ys Poor appetite or overeating Not at all Feeling bad about yourself-o r that you are a failure or have let yourself or your family down Several days Trouble concentrating on thi ngs, such as reading the newspaper or watching television Not at all Moving or speaking so slowly that other people could have noticed. Or the opposite being so fidgety or restless that you have been moving around a lot more than usual Not at all Thoughts that you would be b vanesa off , or of hurting yourself in some way Not at all Total Score 3 Intepretation Minimal Depression Problems Problem Type SNOMED Code ICD Code Onset Dates Problem Status W/U Status Risk Notes Problem Anxiety (18090122) Situational anxiety (F41.8) Active confirmed Encounters Encounter Location Date Provider Diagnosis [facility] [address] [place] [address] 01/22/2025 Balbir [facility] [address] [place] [address] 01/22/[address] [facility] [address] [place] [address] 01/21/2025 Balbir Redd Encounter for dental examination and cleaning with abnormal findings Z01.21 ; Other dental procedure status Z98.818 ; Acute gingivitis, plaque induced K05.00 and Dental caries on pit and fissure surface penetrating into dentin K02.52 Assessments Encounter Date Diagnosis (ICD Code) Assessment Notes Treatment Notes Treatment Clinical Notes Section Notes 01/21/2025 Encounter for dental examination and cleaning with abnormal findings (ICD-10 - Z01.21) 01/21/2025 Other dental procedure status (ICD-10 - Z98.818) 01/21/2025 Acute gingivitis, plaque induced (ICD-10 - K05.00) 01/21/2025 Dental caries on pit and fissure surface penetrating into dentin (ICD-10 - K02.52) Plan Of Treatment Next Appt Details Provider Name:Balbir Redd, 0 05/25/2025 08:30:00 AM, [address] [place], [address], Provider Name:Balbir Redd, 1 08:00:00 AM, [address], [place], [address], Insurance Providers Payer Name Payer Address Payer Phone Subscriber Number Group Number Insured Name Patient Relationship to Insured Coverage Start Date Coverage End Date MEDICARE CGS 1 [facility] [place] [address] [id number] ALENA WEST Self - patient is the insured 3 EAST 2024 [address] [place] [address] [id number] ALENA WEST Self - patient is the insured 3 [employer] [address] [place] [id number]- [id number] JUDITH AnandaALENA Self - patient is the insured 9 Medical (General) History Medical History History ICD Code bradycardia CVA diabetes mellitus Vietnamese Measles pacemaker Surgical History Surgery Date(Month/Year) Sinus surgery Rt Total knee replacement Pacemaker Hospitalization History Reason Date(Month/Year) [facility] [place]
--- OUTSIDE RECORDS SUMMARY | 2025-05-21 14:50 | XMS_ITS | Encounter Summary ---
Author Organization [facility] Address [address] [place] [address] Care Team Providers Care Manager Learning Name Role Phone Arnold Wells DO Primary Care Provider [phone] Encounter Details Date Type Department Care Team (Late st Contact Info) Description 09/27/2024 Clinisync Result Encounter [facility] Unsolicited Gulshan Dong DO Social History Tobacco Use Types Packs/Day Years [...] on file documented as of this encounter Procedures Procedure Name Priority Date/Time Associated Diagnosis Comments CT SPINE LUMBAR W/O CONTRAST 09/27/2024 9:56 AM EST documented in this encounter Results * CT SPINE LUMBAR W/O CONTRAST (09/27/2024 9:56 AM EST) Anatomical Region Laterality Modality Other 09/27/2024 9:56 AM EST Narrative 09/27/2024 10:35 AM EST Exam Date/Time: 09/27/2024 10:25 EST Reason for Exam: Other (please specify) Report IMPRESSION: NO DISPLACED FRACTURE OR SIGNIFICANT POSTTRAUMATIC COMPLICATION IDENTIFIED. EXAM: CT Spine Lumbar w/o Contrast DATE: 09/27/2024 9:56 AM CLINICAL HISTORY: Pain after falling. COMPARISON: CT abdomen and pelvis 09/02/2024. TECHNIQUE: Spiral imaging was obtained of the lumbar spine, with routine multiplanar reconstructions performed. All CT scans at this facility use dose modulation, iterative reconstruction, and/or weight based dosing when appropriate to reduce radiation dose to as low as reasonably achievable. FINDINGS: The spine is visualized from the T12-L1 nearly through the S4 level, assuming no transitional vertebrae. Mild to moderate degenerative changes are again noted. There is no compression, fracture, significant subluxation, worrisome bone destruction, or other significant changes identified. The sacroiliac joints are unremarkable. The urinary bladder is moderately distended. No other significant changes of the visualized paraspinal soft tissues. Ordering Provider: Gulshan Dong FINAL REPORT Dictated: 09/27/2024 10:32 am Demetrius Cowan MD Signed (Electronic Signature): 09/27/2024 10:32 am Signed by: Demetrius Cowan MD Transcribed by: GÉNESIS Technologist: STEVEN Procedure Note Radiology, Radiologist, - 09/27/2024 Exam Date/Time: 09/27/2024 10:25 EST Reason for Exam: Other (please specify) Report IMPRESSION: NO DISPLACED FRACTURE OR SIGNIFICANT POSTTRAUMATICCOMPLICATION IDENTIFIED. EXAM: CT Spine Lumbar w/o Contrast DATE: 09/27/2024 9:56 AM CLINICAL HISTORY: Pain after falling. COMPARISON: CT abdomen and pelvis 09/02/2024. TECHNIQUE: Spiral imaging was obtained of the lumbar spine, with routinemultiplanar reconstructions performed. All CT scans at this facility use dose modulation, iterativereconstruction, and/or weight based dosing when appropriate to reduce radiation dose to as low asreasonably achievable. FINDINGS: The spine is visualized from the T12-L1 nearly through the S4 level,assuming no transitional vertebrae. Mild to moderate degenerative changes are againnoted. There is no compression, fracture, significant subluxation, worrisomebone destruction, or other significant changes identified. The sacroiliacjoints are unremarkable. The urinary bladder is moderately distended. No other significant changesof the visualized paraspinal soft tissues. Ordering Provider: Gulshan Dong FINAL REPORT Dictated: 09/27/2024 10:32 am Demetrius Cowan MD Signed (Electronic Signature): 09/27/2024 10:32 am Signed by: Demetrius Cowan MD Transcribed by: GÉNESIS Technologist: STEVEN us Gulshan Dong DO [facility] Final Result documented in this encounter Visit Diagnoses Not on filedocumented in this encounter Care Teams Manager Learning Relationship Specialty Start Date End Date Arnold Wells DO PCP - General Family Medicine 01/14/24 documented as of this encounter
--- OUTSIDE RECORDS SUMMARY | 2025-05-21 14:50 | XMS_ITS | Patient Health Record ---
Author Organization [facility] Address [address] [place] [address] [place] [address] Care Team Providers Care Block Layer Name Role Phone Robin Gross DO Primary Care Provider Marck Daniels Unavailable [phone] Reason For Referral No Information Encounters Encounter Location Date Provider Diagnosis [address] [id number] 11/19/2024 Marck Chen [address] [id number] 02/18/2025 Marck Chen [address] [id number] 05/20/2025 Marck Chen Plan Of Treatment No Information Insurance Providers Payer Name Payer Address Payer Phone Subscriber Number Group Number Insured Name Patient Relationship to Insured Coverage Start Date Coverage End Date Medicare Part B [id number] Part [facility] [place] [address] [place] [address] [id number] Alejo English Self - patient is the insured [facility] [address] [place] [address] [id number] Alejo English Self - patient is the insured
== END 2025-05-21 14:47 | disposition home or self-care (01) ==
LOC: PST 14:46
PROVIDERS: Visit Provider Urology
DX: Z01.818 Encounter for other preprocedural examination (principal); N40.1 Benign prostatic hyperplasia with lower urinary tract symptoms

== ENCOUNTER 2025-06-04 09:37 | Day surgery (SDC) | payer MEDICARE, OTHER, SELFPAY ==
[2025-06-04] VITALS (17 sets, daily range): BP systolic 122–177; BP diastolic 68–90; PULSE 49–92; TEMP 36.2–36.8; O2SAT 93–100; BMI 25.1
--- NOTE | 2025-06-04 10:08 | ECG_ITS ---
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 Measurements Intervals [place] Rate: 78 P: 29 ID: [id number] QRS: -19 QRSD: 103 T: 48 QT: 388 QTc: 443 Interpretive Statements SINUS RHYTHM WITH FIRST DEGREE AV BLOCK WITH FREQUENT VENTRICULAR PREMATURE COMPLEXES Abnormal ECG No previous ECG available for comparison Electronically Signed On 06-04-2025 18:15:23 EDT by ADELINE JOHNSON M.D.
[2025-06-04] MEDS: 0.9 % SODIUM CHLORIDE 1,000 ML 50 ML IV (10:51)
[2025-06-04] MEDS: LEVOFLOXACIN 500 MG/100 ML-D5W PREMIX 100 MG IV (12:35)
--- NOTE | 2025-06-04 13:47 | P.URON_ITS ---
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 Cystoscopy. 2. Transurethral resection of the prostate. Anesthesia: GETA Primary Surgeon: Diego Henry Complications: None Estimated blood loss (mL): 10 Findings: Trilobar obstruction of the prostate and high-grade bladder damage Specimens: Prostate chips Drains: 22 Marshallese three-way coud? Barba catheter in the bladder taped to traction and CBI Indications for Procedures: This gentleman has BPH with LUTS refractory to medications. Urodynamically he is obstructed and endoscopically he is also obstructed. He has high-grade bladd er damage. He is desirous for TURP. He has signed an informed consent after risks were explained. Some of these risks include bleeding, infection, anesthesia, urinary incontinence both temporary and permanent, retrograde ejaculation, erectile dysfunction and possible need for further operations to name a few. Detailed description of Procedure: The patient was brought to the operating room and placed on the operating room table in the supine position. SCDs were placed on the lower extremities and turned on and functioning during the entire case. Timeout was done by all parties in the room. We all agreed upon the patient's identification and the planned procedures for this patient. Genn. anesthesia was then administered. The patient was then repositioned into the modified dorsal lithotomy position. All pressure points were satisfactorily padded. Genitalia were sterilely prepped and draped in usual fashion. I started by passing a 26 Marshallese Olympus resectoscope and a standard bipolar loop electrode per urethra and into the bladder. The ureteral orifices were marked with a loop electrode. I then sat on the median lobe and uniformly resected this down to the bladder neck level. I then resected posteriorly from the bladder neck to the Veru. I then did the left lateral lobe which was very capacious and obstructing from the bladder neck to the Veru. The right lateral lobe and the anterior tissue were then similarly resected. The apex was then carefully opened up. The resection bed was coagulated. The Ilich was used to get all the chips out of the bladder and these were sent for permanent sections. Upon completion, with the scope at the apex, the prostatic urethra and bladder neck were now wide open. There was no bleeding. There were no chips remaining in the bladder. The scope was then removed. I then passed a 22 Marshallese three-way coud? into the bladder. It was manually irrigated to verify correct placement. 30 cc of fluid was placed in the balloon. It was taped to traction and CBI was started. It irrigated to a clear color. The anesthetic was then reversed. He was then transferred to a [facility] bed and wheeled to PACU in stable condition. Urinary Catheter Management Urinary Catheter Management 3-way Urethral: Cath placed during this visit: no
[2025-06-04] MEDS: 0.9 % SODIUM CHLORIDE 1,000 ML 80 ML IV (13:55)
[2025-06-04] MEDS: SOLIFENACIN SUCCINATE 10 MG TABLET PO (14:28)
[2025-06-04] MEDS: SODIUM CHLORIDE IRRIG SOLUTION 3,000 ML 3000 ML IRR ×5 (14:46→21:56)
[2025-06-04] MEDS: ACETAMINOPHEN 325 MG TABLET 650 MG PO (16:00)
--- NOTE | 2025-06-04 17:25 | PC.NURSE ---
upper dentures found and patient placed them in
[2025-06-04] MEDS: HYDROCODONE/ACET 5-325 MG TABLET 1 TAB PO (19:20)
[2025-06-04] MEDS: TEMAZEPAM 15 MG CAPSULE PO (21:50)
[2025-06-04] MEDS: CEFAZOLIN SODIUM/DEXTROSE,ISO 1 GM/50 ML PREMIX IV (21:50)
[2025-06-04] MEDS: ARTIFICIAL TEARS 300 DROP/15 ML BOTTLE OP (21:51)
[2025-06-05] MEDS: SODIUM CHLORIDE IRRIG SOLUTION 3,000 ML 3000 ML IRR ×2 (00:32→02:35)
[2025-06-05] MEDS: 0.9 % SODIUM CHLORIDE 1,000 ML 80 ML IV (02:35)
[2025-06-05] MEDS: CEFAZOLIN SODIUM/DEXTROSE,ISO 1 GM/50 ML PREMIX IV (03:42)
[2025-06-05 03:45] VITALS: BP 112/69; PULSE 70; TEMP 36.6; O2SAT 94
[2025-06-05] MEDS: PANTOPRAZOLE SODIUM 40 MG TABLET.DR PO (06:52)
[2025-06-05 08:00] VITALS: BP 144/80; PULSE 77; TEMP 36.7; O2SAT 98
[2025-06-05] MEDS: ASPIRIN 81 MG TABLET.DR PO (08:39)
[2025-06-05] MEDS: HYDROCODONE/ACET 5-325 MG TABLET 1 TAB PO (08:39)
[2025-06-05] MEDS: MULTIVITAMIN TABLET 1 TAB PO (08:40)
[2025-06-05] MEDS: CELECOXIB 100 MG CAPSULE 200 MG PO (08:40)
[2025-06-05] MEDS: POTASSIUM CHLORIDE 10 MEQ ER TABLET PO (08:40)
[2025-06-05] MEDS: SOLIFENACIN SUCCINATE 10 MG TABLET PO (08:41)
[2025-06-05] MEDS: LISINOPRIL 5 MG TABLET 7.5 MG PO (08:46)
--- NOTE | 2025-06-05 09:09 | SWNOTE1 ---
Pt is discharged and he does not have a ride back to [facility]. SW called [facility] and left a message for Asia, director of transport. Waiting to hear back.
--- NOTE | 2025-06-05 09:35 | SWNOTE1 ---
ETHAN called Asia at [facility] and she has to check with a few other people to confirm they can transport pt. She voiced she will call ETHAN right back.
[2025-06-05] MEDS: ARTIFICIAL TEARS 300 DROP/15 ML BOTTLE OP (09:37)
--- NOTE | 2025-06-05 09:38 | SWNOTE1 ---
Asia called ETHAN back and H front end driver will be here around 11:30am. ETHAN notified pt's nurse, Luisana of time.
== END 2025-06-05 11:44 | disposition home or self-care (01) ==
LOC: SURGOUT 13:43 → MS 14:34
PROVIDERS: Visit Provider Urology
PROC: (CPT 52601; principal; 2025-06-04 11:15)
DX: N40.1 Benign prostatic hyperplasia with lower urinary tract symptoms (principal); F41.9 Anxiety disorder, unspecified; F32.A Depression, unspecified; E11.9 Type 2 diabetes mellitus without complications; K21.9 Gastro-esophageal reflux disease without esophagitis; I10 Essential (primary) hypertension; E78.5 Hyperlipidemia, unspecified; Z86.73 Personal history of transient ischemic attack (TIA), and cerebral infarction without residual deficits; Z95.0 Presence of cardiac pacemaker; R39.14 Feeling of incomplete bladder emptying; I48.91 Unspecified atrial fibrillation; D64.9 Anemia, unspecified; M19.90 Unspecified osteoarthritis, unspecified site
CPT/HCPCS: 52601; 36415; 82948; 93005; 96365; J0690; J1100; J1805; J2405; J2704; J3010